=== PATIENT | female | born 1980 | race Caucasian/White ===

== ENCOUNTER 2017-08-05 09:11 | Emergency (ER) | payer MEDICAID, OTHER ==
--- NOTE | 2017-08-05 09:34 | UC ---
Upper Extremity HPI - HPI Summary HPI Summary: she has had left wrist pain and carpal tunnel and is followed [place]. Rahman [place] [facility] [place] she has had pain and no new trauma. 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 she now today notes a anterior swelling. - History of Current Complaint Stated Complaint: LEFT WRIST COMPLAINT Time Seen by Provider: 08/05/17 09:20 Onset/Duration: Gradual Onset, Lasting Hours Severity Initially: Moderate Severity Currently: Moderate Location Of Pain: Is Diffuse - left hand and wrist. Aggravating Factor(s): Movement, Lifting Alleviating Factor(s): Rest Associated Signs And Symptoms: Positive: Swelling. Negative: Numbness/Tingling Related History: Dominant Hand Right - Risk Factors Non-Orthopedic Risk Factor: Negative - Allergies/Home Medications Allergies/Adverse Reactions: Allergies Allergy/AdvReac Type Severity Reaction Status Date / Time Shellfish Allergy Allergy Swelling Verified 08/05/17 09:55 Of Face,Lips,& Throat Home Medications: Home Medications Cyanocobalamin [Vitamin B-12] 5,000 mcg PO 08/05/17 [History] Multivitamins/Minerals TAB* [Thera M Plus TAB*] 1 tab PO DAILY 08/05/17 [ History Confirmed 08/05/17] PMH/Surg Hx/FS Hx/Imm Hx Previously Healthy: Yes - Surgical History Surgical History: None - no prior left wrist surgery. - Family History Known Family History: Positive: Other - no wrist related family history. - Social History Occupation: Employed Full-time Lives: With Family Review of Systems Musculoskeletal: Arthralgia All Other Systems Reviewed And Are Negative: Yes Physical Exam Triage Information Reviewed: Yes Appearance: Well-Appearing, No Pain Distress, Well-Nourished Vital Signs Reviewed: Yes Eyes: Positive: Conjunctiva Clear. Negative: Conjunctiva Inflamed ENT: Positive: Normal ENT inspection Neck exam: Normal Neck: Positive: Supple, Nontender, No Lymphadenopathy Respiratory: Negative: Respiratory distress Cardiovascular: Positive: Pulses Normal, Brisk Capillary Refill Abdomen Description: Negative: Distended Musculoskeletal Exam: Other - left wrist diffuse tenderness. there is swelling anteriorly. non pulsatile and is compressible. Neurological Exam: Normal Neurological: Positive: Alert, Muscle Tone Normal. Negative: Fatigued Psychological Exam: Normal Psychological: Positive: Normal Response To Family Skin Exam: Normal Skin: Negative: rashes Upper Extremity Course/Dx - Course Course Of Treatment: she already has orthopedic care in place. she will rest wrist and support. we described this in detail. - Differential Dx/Diagnosis Provider Diagnoses: ganglion cyst. left wrist pain. Discharge - Discharge Plan Condition: Good Disposition: HOME Prescriptions: Naproxen TAB* [Naprosyn 250 mg TAB*] 500 mg PO Q8H PRN #20 tab PRN Reason: Pain Patient Education Materials: Ganglion Cysts (ED) Forms: *Work Release Referrals: No Primary Care Phys,NOPCP [Medical Doctor] - Additional Instructions: follow up with your orthopedic doctor as we discussed.
[2017-08-05 09:54] VITALS: BP 105/66
== END 2017-08-05 10:03 | disposition home or self-care (01) ==
LOC: UCCORT 09:11
DX: M67.432 Ganglion, left wrist (principal); M25.532 Pain in left wrist
CPT/HCPCS: 99203; G0463

== ENCOUNTER 2017-11-15 13:32 | Emergency (ER) | payer OTHER ==
[2017-11-15 13:55] VITALS: BP 120/66
--- NOTE | 2017-11-20 10:13 | UC ---
Laceration HPI - HPI Summary HPI Summary: patient cut her finger on a glass pickle jar that broke at work, left thumb, 2 cm lac. - History Of Current Complaint Chief Complaint: UCLaceration Stated Complaint: LEFT THUMB INJURY (WC) Time Seen by Provider: 11/15/17 15:11 Hx Obtained From: Patient Hx Last Menstrual Period: 11/07/17 Laceration Location: Hand Mechanism Of Injury: Sharp Trauma Onset/Duration: Sudden Onset Severity: Mild Pain Intensity: 5 Pain Scale Used: 0-10 Numeric - Allergies/Home Medications Allergies/Adverse Reactions: Allergies Allergy/AdvReac Type Severity Reaction Status Date / Time Lidocaine [From Sebas-1] Allergy Severe mouth Verified 11/15/17 13:49 swelling durning dental procedure Gabapentin Allergy Palpitation Verified 11/15/17 13:49 s Shellfish Allergy Allergy Swelling Verified 11/15/17 13:49 Of Face,Lips,& Throat Home Medications: Home Medications Naproxen Sodium [Naproxen Sodium 220 mg] 440 mg PO BEDTIME 11/15/17 [History Confirmed 11/15/17] PMH/Surg Hx/FS Hx/Imm Hx Previously Healthy: Yes - Surgical History Surgical History: None Surgery Procedure, Year, and Place: cervical - Family History Known Family History: Positive: Other - no wrist related family history. - Social History Alcohol Use: None Substance Use Type: None, Sedatives Smoking Status (MU): Heavy Every Day Tobacco Smoker Type: Cigarettes Amount Used/How Often: 1 1/2 pack daily - Immunization History Most Recent Tetanus Shot: 10 years ago Review of Systems Constitutional: Negative Skin: Other - laceration Eyes: Negative ENT: Negative Respiratory: Negative Cardiovascular: Negative Gastrointestinal: Negative Genitourinary: Negative Motor: Negative Neurovascular: Negative Musculoskeletal: Negative Neurological: Negative Psychological: Negative Is Patient Immunocompromised?: No All Other Systems Reviewed And Are Negative: Yes Physical Exam Triage Information Reviewed: Yes Appearance: Well-Appearing, Well-Nourished, Pain Distress Vital Signs: Initial Vital Signs Temp 97.7 F 11/15/17 13:51 Pulse 86 11/15/17 13:51 Resp 16 11/15/17 13:51 BP 120/66 11/15/17 13:51 Vital Signs Reviewed: Yes Eye Exam: Normal ENT Exam: Normal Dental Exam: Normal Neck exam: Normal Respiratory Exam: Normal Respiratory: Positive: Chest non-tender, Lungs clear, Normal breath sounds Cardiovascular Exam: Normal Cardiovascular: Positive: RRR, No Murmur Abdominal Exam: Normal Bowel Sounds: Positive: Present Musculoskeletal Exam: Normal Neurological Exam: Normal Psychological Exam: Normal Skin: Positive: Other - 2 cm laceration on the left thumb Laceration Course/Dx - Course/Dx Course Of Treatment: hx obtained, exam performed ,meds reviewed, laceration cleansed, glues and thumb splinted, educated on care. - Differential Dx - Laceration/Wound Differental Diagnoses: Laceration, Suture Removal, Tendon Laceration Provider Diagnoses: 2 cm laceration to the left thumb Discharge - Discharge Plan Condition: Stable Disposition: HOME Prescriptions: Cephalexin CAP* [Keflex CAP*] 500 mg PO BID #10 cap Patient Education Materials: Laceration (ED), Skin Adhesive Care (ED) Forms: *Work Release Referrals: ROXIE Pugh [Primary Care Provider] -
== END 2017-11-15 15:34 | disposition home or self-care (01) ==
LOC: UCCORT 13:32
DX: S61.012A Laceration without foreign body of left thumb without damage to nail, initial encounter (principal); W25.XXXA Contact with sharp glass, initial encounter; Y93.9 Activity, unspecified; Y92.9 Unspecified place or not applicable; Y99.0 Civilian activity done for income or pay; Z88.8 Allergy status to other drugs, medicaments and biological substances; Z88.4 Allergy status to anesthetic agent; Z91.013 Allergy to seafood; F17.210 Nicotine dependence, cigarettes, uncomplicated
CPT/HCPCS: 12001; 99212; G0463

== ENCOUNTER 2018-07-02 08:55 | Emergency (ER) | payer OTHER ==
[2018-07-02 10:33] VITALS: BP 107/58
[2018-07-02] MEDS ORDERED: Ibuprofen TAB* 600 MG PO ONE (10:56)
--- NOTE | 2018-07-02 11:43 | RAD ---
INDICATION: Neck pain COMPARISON: None TECHNIQUE: Routine five-view imaging was performed FINDINGS: Bones: There are no acute bony findings. There are no significant osteoarthritic findings. Craniocervical junction: The odontoid and atlantodental interval are normal. Alignment: Normal Disc spaces: The disc spaces are well-maintained Soft tissues: The prevertebral soft tissues are normal. IMPRESSION: NEGATIVE EXAMINATION.
--- NOTE | 2018-07-02 11:52 | RAD ---
INDICATION: Low back pain, injury 2 days ago. COMPARISON: There are no relevant prior studies available for comparison. TECHNIQUE: 5 views of the lumbar spine were obtained including lateral, oblique, AP and a coned-down lateral view of the lumbar sacral junction. FINDINGS: The vertebra are in normal alignment. No fracture is seen. There is mild degenerative disc disease at the L2-L3 and L5-S1 levels. IMPRESSION: NO EVIDENCE FOR FRACTURE.
--- NOTE | 2018-07-02 11:53 | RAD ---
INDICATION: Back pain status post injury 2 days ago. COMPARISON: There are no relevant prior studies available for comparison. TECHNIQUE: AP and lateral films of the dorsal spine were obtained. FINDINGS: There is a mild dorsal scoliosis convex toward the left side. The vertebra are otherwise in normal alignment. No fracture is seen. Disc spaces appear maintained. IMPRESSION: NO EVIDENCE FOR FRACTURE.
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
== END 2018-07-02 12:23 | disposition home or self-care (01) ==
LOC: UCCORT 08:55
DX: S29.012A Strain of muscle and tendon of back wall of thorax, initial encounter (principal); S39.012A Strain of muscle, fascia and tendon of lower back, initial encounter; S16.1XXA Strain of muscle, fascia and tendon at neck level, initial encounter; V53.5XXA Driver of pick-up truck or van injured in collision with car, pick-up truck or van in traffic accident, initial encounter; Y93.89 Activity, other specified; Y92.9 Unspecified place or not applicable; N39.0 Urinary tract infection, site not specified; B96.20 Unspecified Escherichia coli [E. coli] as the cause of diseases classified elsewhere; Z88.8 Allergy status to other drugs, medicaments and biological substances; F17.210 Nicotine dependence, cigarettes, uncomplicated
CPT/HCPCS: 72050; 72070; 72110; 81003; 84702; 87077; 87086; 87186; 99212; A9270-GY; G0463